=== PATIENT | male | born 1960 | race Caucasian/White ===

== ENCOUNTER → 2017-07-10 | Outpatient (CLI) | payer OTHER | LOC: FIMAGING 08:37 | PROVIDERS: ATTEND Internal Medicine Hematology & Oncology | DX: M50.123 Cervical disc disorder at C6-C7 level with radiculopathy (principal); M50.122 Cervical disc disorder at C5-C6 level with radiculopathy ==

== ENCOUNTER → 2017-10-27 | Outpatient (CLI) | payer OTHER | LOC: FIMAGING 09:05 | PROVIDERS: ATTEND Nurse Practitioner | DX: M47.812 Spondylosis without myelopathy or radiculopathy, cervical region (principal); R93.0 Abnormal findings on diagnostic imaging of skull and head, not elsewhere classified ==

== ENCOUNTER 2017-10-31 08:58 | Observation (INO) | payer OTHER ==
[2017-10-31] MEDS ORDERED: ceFAZolin 2 GM/SWFI 2 GM/20 ML SYR IVP ONE (09:11)
[2017-10-31] MEDS ORDERED: GABAPENTIN 300 MG CAP PO ONE (09:11)
[2017-10-31] MEDS ORDERED: ACETAMINOPHEN 500 MG TAB PO ONE (09:11)
[2017-10-31] MEDS ORDERED: LR 1,000 ML IV ONE (09:12)
[2017-10-31] MEDS ORDERED: LIDOCAINE 1% 2 ML INJ ONE (09:34)
[2017-10-31] MEDS ORDERED: GABAPENTIN 300 MG CAP ONE (09:47)
--- NOTE | 2017-10-31 09:55 | PDHPUP ---
History & Physical Update H&P update statement: This history and physical update is based on an assessment of the patient which was completed after admission or registration (within 24 hours), but prior to the surgery/procedure. H&P update: H&P reviewed & patient examined, no change in patient's condition since H&P completed
[2017-10-31] MEDS ORDERED: THROMBIN (BOVINE) 5,000 UNIT VIAL TP ONE (10:46)
[2017-10-31] MEDS ORDERED: BUPIVACAINE 0.25% 30 ML SDV ONE (10:46)
[2017-10-31] MEDS ORDERED: BACITRACIN 50,000 UNITS/10 ML SYR IRR ONE (10:46)
[2017-10-31] MEDS ORDERED: MIDAZOLAM 2 MG/2 ML VIAL IVP ONE (11:30)
--- NOTE | 2017-10-31 11:30 | PDANEPAE ---
ANE History of Present Illness 56 yo for acdf ANE Past Medical History - Cardiovascular History Hx Hypertension: No Hx Arrhythmias: No Hx Chest Pain: No Hx Coronary Artery / Peripheral Vascular Disease: No Hx CHF / Valvular Disease: No Hx Palpitations: No - Pulmonary History Hx COPD: No Hx Asthma/Reactive Airway Disease: No Hx Recent Upper Respiratory Infection: No Hx Oxygen in Use at Home: No Hx Sleep Apnea: No Sleep Apnea Screening Result - Last Documented: Negative - Neurologic History Hx Cerebrovascular Accident: No Hx Seizures: No Hx Dementia: No - Endocrine History Hx Diabetes: No - Renal History Hx Renal Disorders: No - Liver History Hx Hepatic Disorders: No - Neurological & Psychiatric Hx Hx Neurological and Psychiatric Disorders: No - Cancer History Hx Cancer: Yes Cancer History Comment: LYMPHOMA CHEMO UNTIL 2015 - Congenital Disorder History Hx Congenital Disorders: No - GI History Hx Gastrointestinal Disorders: No - Chronic Pain History Chronic Pain: Yes (NECK PAIN TO ARMS) - Surgical History Prior Surgeries: HERNIA REPAIR 2007 ANE Review of Systems Review of Systems: - Exercise capacity METS (RN): 4 METS ANE Patient History - Allergies Allergies/Adverse Reactions: Penicillins Allergy (Verified 10/31/17 09:47) Other-Enter Comments - Home Medications Home medications: home medication list seen and reviewed Home Medications: Aspirin 325 mg 12/13/10 [Last Taken 10/26/17] Acyclovir 10/28/17 [Last Taken 10/31/17] Gabapentin 300 mg 10/28/17 [Last Taken 10/30/17 19:00] riTUXimab 10/31/17 [Last Taken 09/30/17] - NPO status NPO Status: no food or drink >8 hours NPO Since - Liquids (Date): 10/31/17 NPO Since - Liquids (Time): 06:30 NPO Since - Solids (Date): 10/30/17 NPO Since - Solids (Time): 22:00 - Anes Hx Anes Hx: no prior problems - Smoking Hx Smoking Status: Never smoked - Family Anes Hx Family Hx Anesthesia Complications: NA ANE Labs/Vital Signs - Vital Signs Blood Pressure: 132/71 Heart Rate: 72 Respiratory Rate: 16 O2 Sat (%): 94 Height: 6 ft Weight: 81.647 kg ANE Physical Exam - Airway Neck exam: decreased ROM Mallampati Score: Class 2 Mouth exam: normal dental/mouth exam - Pulmonary Pulmonary: no respiratory distress - Cardiovascular Cardiovascular: regular rate and rhythym - ASA Status ASA Status: II ANE Anesthesia Plan Anesthesia Plan: general endotracheal anesthesia
[2017-10-31] MEDS ORDERED: BUPIVACAINE 0.5% 30 ML SDV ONE (11:38)
[2017-10-31] MEDS ORDERED: PROPOFOL/EMULSION 500 MG/50 ML BOTTLE IV ONE ×2 (11:48→12:49)
[2017-10-31] MEDS ORDERED: fentaNYL 100 MCG/2 ML INJ ONE ×3 (11:48→15:19)
[2017-10-31] MEDS ORDERED: REMIFENTANIL HCL 1 MG VIAL ONE ×2 (11:48→12:50)
[2017-10-31] MEDS ORDERED: ONDANSETRON 4 MG/2 ML VIAL IVP PRN ×2 (12:44→14:36)
[2017-10-31] MEDS ORDERED: MAGNESIUM HYDROXIDE 30 ML UDCUP PO PRN (12:44)
[2017-10-31] MEDS ORDERED: LACTULOSE 20 GM/30 ML UDCUP PO PRN (12:44)
[2017-10-31] MEDS ORDERED: diphenhydrAMINE 25 MG CAP PO PRN (12:44)
[2017-10-31] MEDS ORDERED: oxyCODONE IR 5 MG TAB PO PRN (12:44)
[2017-10-31] MEDS ORDERED: POLYETHYLENE GLYCOL 3350 17 GM PKT PO PRN (12:44)
[2017-10-31] MEDS ORDERED: BISACODYL 10 MG SUPP PR PRN (12:44)
[2017-10-31] MEDS ORDERED: ONDANSETRON DISINTEGRATING 4 MG TAB PO PRN (12:44)
[2017-10-31] MEDS ORDERED: ceFAZolin 2 GM/DEXTROSE 100 ML IV SCH (14:00)
[2017-10-31] MEDS ORDERED: ROCURONIUM 50 MG/5 ML VIAL ONE (14:31)
[2017-10-31] MEDS ORDERED: NALOXONE HCL 0.4 MG/ML INJ IVP PRN ×2 (14:36)
[2017-10-31] MEDS ORDERED: HYDROmorphONE/DILAUDID 1 MG/ML INJ IVP PRN (14:36)
[2017-10-31] MEDS ORDERED: HYDROmorphONE/DILAUDID 2 MG/ML INJ IVP PRN (14:51)
--- NOTE | 2017-10-31 14:58 | POSTOPPROG ---
Post Op Note Date of Operation: 10/31/17 Surgeon: Jeremiah Etienne Research Electrician: Rhona Gates NP Anesthesiologist: Neeraj Anesthesia: GET(General Endotracheal) Pre-op Diagnosis: Cervical stenosis Procedure: ACDF C5-6, C6-7 Inf/Abcess present in the surg proc area at time of surgery?: No Depth: Deep Incisional (Fascial) EBL: 50-100 Total fluids administered: see anesthesia Complications: none Date of Surgery: 10/31/17 Post Op Day: 0 Assessment/Plan: Assessment: 56 yr old s/p ACDF C5-6, C6-7 for left arm pain/numbness Plan: -Admit Med Surg -PT/OT/ST eval and treat -Patient to wear collar at all times, patient already has collar -Please call neurosurgery with any questions/concerns Subjective: Patient waking up in PACU Objective: Waking up in PACU Following commands No facial droop Moving extremities x4 BUE 5/5 except left tricep 4/5 Sensation intact to light touch BLE Dressing CDI Appropriate Neuro Check Frequency Ordered: Yes
[2017-10-31] MEDS: fentaNYL 100 MCG/2 ML INJ IVP PRN ×2 (15:21→15:28)
[2017-10-31] MEDS: ACETAMINOPHEN 500 MG TAB PO SCH ×2 (16:49→22:29)
[2017-10-31] MEDS: GABAPENTIN 300 MG CAP PO SCH ×2 (16:51→22:29)
--- NOTE | 2017-10-31 18:21 | POSTANESTH ---
Post Anesthetic Evaluation Cardiovascular Status: Normal, Stable Respiratory Status: Normal, Stable Level of Consciousness/Mental Status: Can Participate in Eval Pain Control: Adequate, Prn Tx Ordered Nausea/Vomiting Control: Adequate, Prn Tx Ordered Complications Possibly Related to Anesthesia: None Noted
[2017-10-31 19:00] VITALS: RESP 16
[2017-10-31] MEDS: ceFAZolin 2 GM/SWFI 2 GM/20 ML SYR IVP SCH (20:09)
[2017-10-31] MEDS: FAMOTIDINE 20 MG TAB PO SCH (20:09)
[2017-10-31] MEDS: SENNOSIDES/DOCUSATE SODIUM TAB PO SCH (20:09)
[2017-11-01] MEDS: ceFAZolin 2 GM/SWFI 2 GM/20 ML SYR IVP SCH (04:20)
--- NOTE | 2017-11-01 04:21 | GOP ---
[f rep st] OPERATIVE REPORT DATE OF OPERATION: 10/31/2017 SURGEON: Sami Etienne MD EXHIBIT CLEANER: Rhona Gates NP. PREOPERATIVE DIAGNOSIS: Cervical spondylosis, left cervical radiculopathy, left cervical stenosis at C6-7 and C5-6. POSTOPERATIVE DIAGNOSIS: Cervical spondylosis, left cervical radiculopathy, left cervical stenosis a t C6-7 and C5-6. PROCEDURE PERFORMED: Anterior cervical diskectomy with arthrodesis and decompression C5-6, C6-7 ([phone], [id number]), placement of biomechanical intervertebral device C5-6, C6-7 ([id number] x2), placement of ante rior cervical plate C5, C6, C7 ([id number]), microscope, same incision bone graft harvest. FINDINGS: ESTIMATED BLOOD LOSS: 50 cc. INDICATIONS: The patient is a middle-aged gentleman who had really terrible left cervicalgia that keyes s been growing dramatically worse over the last several weeks just prior to surgery and is becoming u nbearable. An MRI demonstrated significant spondylosis at C5-6, C6-7 and bilateral foraminal disease at C5-6, but the worst problem was really at C6-7 where there was a left lateral cord indentation by a disk and osteophyte complex on the left paracentral location and there was foraminal stenosis. He really had no significant right-sided symptoms. I suggested a 2-level ACDF. The risk of adjacent s egment disease, esophageal injury, carotid injury, recurrent laryngeal nerve injury, pseudoarthrosis, dysphagia, infection, continued symptoms, failure of the surgery to eliminate the symptoms as well a s the risk of hoarseness was discussed. He knew there was a chance surgery could fail, but he did wa nt to proceed despite the risks. DESCRIPTION OF PROCEDURE: Patient was taken to the operating room, placed in supine position. Gener al anesthesia was begun. His neck was kept neutral. The occiput gently extended on a horseshoe head boys tennis coach. Care was taken to pad all points of contact. A localizing x-ray was taken. His neck was s terilely prepped and draped in the usual fashion. I made a transverse incision in the lower neck cre ase on the right-hand side. The subcutaneous tissue was dissected using Bovie cautery down through t he platysma. I then used a combination of sharp and blunt dissection medial to the sternocleidomasto id and lateral to the strap muscles down the prevertebral space. This exposure was slightly more dif ficult than normal, but there were no irregularities. I did not divide any measurable vessels or ner ves to get down to the prevertebral space. The carotid sheath and its contents were lateral. The st ernocleidomastoid was lateral. We swept the trachea and the midline structures more medial. We shot a localizing x-ray. We placed a self-retaining retractor, dissected the longus colli muscles off th e spine at C5-6, C6-7. There were large ventral osteophytes present. We drilled these away. Distra ction pins were placed in the C6-7 vertebral bodies. A localizing x-ray was taken. We then distract ed at C6-7, removed the disk and the cartilaginous endplates. I drilled and harvested subchondral dl ne for autologous grafting purposes and we had enough to fill 1 implant. I then opened the PLL and d ecompressed the thecal sac and the neural foramen bilaterally, working more diligently on the patient 's left-hand side than on the right. There was a left paracentral disk protrusion in the spinal abhijit l causing compression of the left side of the cord and this was removed. A nice decompression was ob tained. We then took the 7 mm lordotic PEEK intervertebral device, inserted it at C6-7 and a nice fi t was obtained. I removed the distraction pins, placed Gelfoam bullets in the holes that remained, a nd then moved the distraction pin to C5 where I distracted at C5-6. Interestingly, this level was le ss mobile than C6-7, but we removed the C5-6 disk and the cartilaginous endplates completely. We dri lled and harvested subchondral bone for autologous grafting purposes. I then opened the PLL and deco mpressed the thecal sac and the neural foramen on each side. Here I worked a little more diligently on the right and at C6-7 where there was really less foraminal stenosis at C6-7 on the right-hand roseanna e, but we got a great decompression. I identified both of the exiting C6 nerve roots at this level, just as I had done at C6-7, identifying the C7 nerve roots. We then took a 7 mm PEEK intervertebral device, packed it with autologously harvested bone dust, and it was then inserted at C5-6. A nice fi t was obtained. We then shaped the ventral surface of the vertebral bodies for acceptance of our maikel te. We chose a 37 mm plate. Placed a single screw at C5. A single screw at C7 and shot an x-ray. We were happy with the screws. We then placed the remaining screws in place for a total of 6 screws and they were locked according to company specification. We inspected the longus colli muscles looki ng for bleeders. We then injected 7 cc of the dysphagia study protocol drug into the prevertebral sp tori and then closed the platysma with interrupted Vicryl sutures. We then closed the skin with inter rupted Vicryl sutures. Steri-Strips were applied the skin. The patient was reversed from anesthesia , extubated, and transferred to recovery room in stable condition. There were no complications. COMPLICATIONS: None. /[id number]/MODL
[2017-11-01] MEDS: METHOCARBAMOL 750 MG TAB PO PRN ×2 (04:32→10:33)
[2017-11-01] MEDS: GABAPENTIN 300 MG CAP PO SCH (05:17)
[2017-11-01] MEDS: ACETAMINOPHEN 500 MG TAB PO SCH (05:17)
[2017-11-01 05:29] LABS: PLATELET COUNT 216 10^3/uL (150-400)
--- NOTE | 2017-11-01 08:25 | NEUSURGPN ---
Date of Surgery: 10/31/17 Post Op Day: 1 Assessment/Plan: Assessment: 56 yr old s/p ACDF C5-6, C6-7 for left arm pain/numbness POD#1 Plan: -Patient left arm pain improved -May discharge home following PT/OT/ST eval and recommendations and completion of post op xrays -Post op xrays pending this am -Patient to wear collar at all times, patient already has collar -Patient seen by Dr Etienne as well -Please call neurosurgery with any questions/concerns Subjective: Left arm pain improved, mild pain around left elbow and hand Objective: AxO x3 PERRL CN 2-12 grossly intact 5/5 RUE 5/5 LUE except left tricep 4/5 Dressing CDI Neuro Check Frequency: per routine Urinary Catheter in Place: No - Physician Discussed Patient with : Lowell Patient Seen by : Lowell Neurosurgery Physical Exam - Vitals, I&O, Labs I and O 10/31/17 11/01/17 11/02/17 05:59 05:59 05:59 Intake Total 2580 Output Total 1750 Balance 830 Weight 81.647 kg Intake: Oral (ml) 1080 IV Intake (ml) 1500 Output: Urine (ml) 1650 Toilet 1650 Estimated Blood Loss (ml) 100 Other: Intake Quantity Yes Sufficient Number of Voids Toilet 3 Vital Signs Temp Pulse Resp BP Pulse Ox 36.8 C 74 16 138/87 H 92 11/01/17 03:07 11/01/17 03:07 11/01/17 03:07 11/01/17 03:07 11/01/17 03:07 Laboratory Results 11/01/17 04:34 11/01/17 04:34 ICD10 Worksheet Patient Problems: Problems Problem Status Onset Cervical spinal stenosis Acute - ICD10 Problem Qualifiers (1) Cervical spinal stenosis
[2017-11-01 08:26] VITALS: BP 125/81; PULSE 77; TEMP 97.7; O2SAT 95
[2017-11-01] MEDS: FAMOTIDINE 20 MG TAB PO SCH (08:26)
[2017-11-01] MEDS: SENNOSIDES/DOCUSATE SODIUM TAB PO SCH (08:26)
[2017-11-03] MEDS ORDERED: ENOXAPARIN 40 MG/0.4 ML SYR SC SCH (09:00)
== END 2017-11-01 10:40 | disposition home or self-care (01) ==
LOC: F3N 08:58
PROVIDERS: ADMIT Neurological Surgery; ATTEND Neurological Surgery
PROC: 0PH304Z Insertion of Internal Fixation Device into Cervical Vertebra, Open Approach (ICD-10-PCS; principal; 2017-10-31 10:45)
PROC: 0RH104Z Insertion of Internal Fixation Device into Cervical Vertebral Joint, Open Approach (ICD-10-PCS; principal; 2017-10-31 10:45)
PROC: 0RG20J0 Fusion of 2 or more Cervical Vertebral Joints with Synthetic Substitute, Anterior Approach, Anterior Column, Open Approach (ICD-10-PCS; principal; 2017-10-31 10:45)
PROC: 0RG10J0 Fusion of Cervical Vertebral Joint with Synthetic Substitute, Anterior Approach, Anterior Column, Open Approach (ICD-10-PCS; principal; 2017-10-31 10:45)
DX: M47.892 Other spondylosis, cervical region (principal); M54.12 Radiculopathy, cervical region; M48.02 Spinal stenosis, cervical region
CPT/HCPCS: 22551; 22552; 22845; 22853; 72040; 76001; 97116; 97161; 97165; 97535; G0378; C1713; J0171; J0690; J2250; J2704; J3010

== ENCOUNTER → 2017-11-04 | Outpatient (CLI) | payer OTHER ==
[~2017-11-04] MED LIST: GADOBUTROL 10 ML VIAL IVP ONE
== END ==
LOC: FIMAGING 15:54
PROVIDERS: ATTEND Neurological Surgery
DX: M79.89 Other specified soft tissue disorders (principal); Z98.1 Arthrodesis status
CPT/HCPCS: A9585

== ENCOUNTER → 2017-12-10 | Outpatient (CLI) | payer OTHER | LOC: FIMAGING 14:29 | PROVIDERS: ATTEND Physician Assistant | DX: R22.1 Localized swelling, mass and lump, neck (principal); G54.0 Brachial plexus disorders | CPT/HCPCS: A9585 ==

== ENCOUNTER → 2017-12-20 | Outpatient (CLI) | payer OTHER ==
[~2017-12-20] MED LIST changes: -GADOBUTROL 10 ML VIAL IVP ONE; +LIDOCAINE 1% 300 MG/30 ML SDV ONE
== END ==
LOC: FIMAGING 07:51
PROVIDERS: ATTEND Internal Medicine Hematology & Oncology
PROC: 0KB Muscles, Excision (ICD-10-PCS; principal; 2017-12-20)
DX: C83.34 Diffuse large B-cell lymphoma, lymph nodes of axilla and upper limb (principal)
CPT/HCPCS: 88184-90; 88185-91

== ENCOUNTER → 2017-12-23 | Outpatient (CLI) | payer OTHER | LOC: FIMAGING 10:00 | PROVIDERS: ATTEND Physician Assistant | DX: Z98.1 Arthrodesis status (principal) ==

== ENCOUNTER → 2017-12-30 | Day surgery (SDC) | payer OTHER ==
--- NOTE | 2017-12-30 15:38 | PDRADPN ---
Radiology Procedure Note Date of Procedure: 12/30/17 Radiologist: Mode Mendoza Anesthesia: Local (Specify) Pre-op Diagnosis: malignancy Post-op Diagnosis: same Indication: chemo Procedure: RUE SL PICC Finding(s): 40cm SL power picc via patent basilic, at cavoatrial jxn, ok to use. Inf/Abcess present in the surg proc area at time of surgery?: No Complications: none
== END | disposition home or self-care (01) ==
LOC: FIMAGING 14:45
PROVIDERS: ATTEND Internal Medicine Hematology & Oncology
PROC: 02HV33Z Insertion of Infusion Device into Superior Vena Cava, Percutaneous Approach (ICD-10-PCS; principal; 2017-12-30)
DX: C85.90 Non-Hodgkin lymphoma, unspecified, unspecified site (principal)
CPT/HCPCS: 36569; 77001; C1751

== ENCOUNTER → 2018-03-23 | Outpatient (CLI) | payer OTHER ==
[~2018-03-23] MED LIST changes: +BUPIVACAINE 0.25% 30 ML SDV ONE; +ETHYL ALCOHOL 98% 5 ML AMP MISC ONE
== END ==
LOC: FIMAGING 09:58
PROVIDERS: ATTEND Radiology Diagnostic Radiology
DX: R20.0 Anesthesia of skin (principal); C85.90 Non-Hodgkin lymphoma, unspecified, unspecified site

== ENCOUNTER → 2018-04-12 | Outpatient (CLI) | payer OTHER ==
[~2018-04-12] MED LIST changes: -BUPIVACAINE 0.25% 30 ML SDV ONE; +DEPO METHYLPREDNISOLONE 40 MG/ML SDV ONE; -ETHYL ALCOHOL 98% 5 ML AMP MISC ONE
== END ==
LOC: FIMAGING 08:06
PROVIDERS: ATTEND Radiology Diagnostic Radiology
DX: C83.30 Diffuse large B-cell lymphoma, unspecified site (principal); M79.2 Neuralgia and neuritis, unspecified
CPT/HCPCS: 88184-90; 88185-91; J1030

== ENCOUNTER → 2018-10-03 | Outpatient (CLI) | payer OTHER | LOC: FIMAGING 12:06 | PROVIDERS: ATTEND Nurse Practitioner | DX: M50.321 Other cervical disc degeneration at C4-C5 level (principal); Z98.1 Arthrodesis status ==